=== PATIENT | female | born 1995 | race Caucasian/White ===

== ENCOUNTER 2024-05-29 05:02 | Inpatient (IN) | payer OTHER, SELFPAY ==
[2024-05-29 05:14] VITALS: BP 153/100; BMI 31.6
[2024-05-29 05:46] LABS: % Basophils 0.4 % (0-2); % Eosinophils 0.5 % (0-6); % Immature Granulocytes 0.6 % (0-0.5); % Lymphocytes 25.9 % (20.5-51.1); % Neutrophils 66.6 % (42.2-75.2); Absolute Immature Granulocytes 0.1 10^3/uL (0-0.05); Absolute Lymphocytes 2.1 10^3/uL (1.2-3.4); Absolute Monocytes 0.5 10^3/uL (0.1-0.6); Absolute Neutrophils 5.4 10^3/uL (1.4-6.5); Hematocrit 39.3 % (37.0-47.0); Hemoglobin 13.9 g/dL (12.0-16.0); Mean Corp Hgb Conc. 35.4 g/dL (33.0-37.0); Mean Corpuscular Hgb 31.7 pg (27.0-31.0); Mean Corpuscular Volume 89.5 fL (81.0-99.0); Mean Platelet Volume 11.4 fL (7.4-10.4); Nucleated Red Blood Cells % 0 %; Platelet Count 148 10^3/uL (130-400); Red Blood Cell Count 4.39 10^6/uL (4.20-5.40); Red Cell Dist. Width 12.6 % (11.5-14.5); White Blood Cell Count 8.1 10^3/uL (4.8-10.8)
[2024-05-29 05:57] LABS: Urine Albumin Trace (Neg - Trace); Urine Bilirubin Negative (Negative); Urine Character Clear (Clear); Urine Color Yellow; Urine Glucose Negative (Negative); Urine Ketone Negative (Negative); Urine Leukocyte Negative (Negative); Urine Nitrite Negative (Negative); Urine Occult Blood 2+ (Negative); Urine Specific Gravity 1.015 (<1.030); Urine Urobilinogen Negative (Neg - 1+)
[2024-05-29] MEDS: CELESTONE SOLUSPAN 2 MG IM (06:02)
[2024-05-29] MEDS: LR 1000 IV ×3 (06:03→20:00)
[2024-05-29] MEDS: SYNTHROID 88 MCG PO (06:04)
[2024-05-29] MEDS: VANCOCIN 540 MG IV (06:11)
[2024-05-29 06:13] LABS: ALT (SGPT) 15 U/L (0-35); AST (SGOT) 27 U/L (14-36); Albumin 3.6 g/dl (3.5-5.0); Alkaline Phosphatase 124 U/L (38-126); Blood Urea Nitrogen 8 mg/dl (7-17); Calcium 9.5 mg/dl (8.4-10.2); Carbon Dioxide 21 mmol/L (22-30); Chloride 107 mmol/L (98-107); Estimated Creatinine Clearance > 125 ml/min; Glucose 87 mg/dl (70-99); Potassium 3.7 mmol/L (3.5-5.1); Sodium 140 mmol/L (135-145); Total Bilirubin 0.3 mg/dl (0.2-1.3); Total Protein 6.2 g/dl (6.3-8.2); eGFR > 60.00
[2024-05-29 06:25] LABS: Urine Squamous Cell >30 /LPF (Few)
[2024-05-29 06:26] LABS: Urine Amorphous Seen; Urine Bacteria Moderate (Negative); Urine Urothelial Cell >30 /LPF (FEW)
[2024-05-29 06:28] LABS: Urine Protein 53 mg/dl
[2024-05-29] MEDS: PITOCIN 30 UNITS/NSS 500 ML IV (10:05)
--- NOTE | 2024-05-29 11:13 | PHA.VAN.IN ---
Assessment
- Assessment
Renal Function: Unknown baseline
Concomitant Antimicrobials: none
AUC Dosing Plan
- Empiric Dosing
Initial / Loading Dose: 2000 mg x 1 dose ( adm ~ 0600 05/29/24)
Maintenance Regimen: 1750 mg q8h
Vancomycin 20 mg/kg IV Q8H, dose based on actual weight rounded to nearest 250 mg with max 2,000 mg/dose.
ADMINISTER UNTIL DELIVERY
- Monitoring
No levels ordered at this time: administer until delivery
Pharmacokinetics Vancomycin I
- -
Patient Age: 28
Patient Sex: Female
Vancomycin Day #: 1
Indication: Mary (Ldrp)
Requesting Provider: Ayo
Pertinent Antimicrobial Allergies:
Penicillins, sulfa
Height / Weight:
Height 5 ft 5 in
Actual Weight 86.183 kg
- Vital Signs / Lab Results
Temp Pulse Resp BP
98.3 F 88 18 153/100
05/29/24 05:14 05/29/24 05:14 05/29/24 05:14 05/29/24 05:14
Lab Results - Hematology
05/29/24
05:35
WBC 8.1
Lab Results - Chemistry
05/29/24
05:35
BUN 8
Creatinine 0.6
Estimated Creat Clear > 125
Albumin 3.6
Lab Results - Urine
05/29/24
05:42
Urine Nitrite Negative
Ur Leukocyte Esterase Negative
Urine WBC 6-10 A
Ur Squamous Epith Cells >30
Urine Bacteria Moderate A
[2024-05-29] MEDS: VANCOCIN 535 MG IV ×2 (14:30→22:02)
[2024-05-29] MEDS: SUBLIMAZE 100 MCG EPIDURAL (15:56)
[2024-05-29] MEDS: FENTANYL/BUPIVACAINE 100 EPIDURAL ×2 (15:56→23:20)
[2024-05-30] MEDS: ZOFRAN 4 MG IV (01:16)
[2024-05-30] MEDS: LR 1000 IV (01:23)
[2024-05-30] MEDS: SYNTHROID 88 MCG PO (05:48)
[2024-05-30] MEDS: MOTRIN 600 MG PO ×3 (05:48→20:07)
[2024-05-30] MEDS: TYLENOL 650 MG PO ×2 (14:49→20:07)
[2024-05-30] MEDS: SENOKOT-S 1 TABLET PO (14:49)
[2024-05-31] MEDS: TYLENOL 650 MG PO ×3 (04:06→23:52)
[2024-05-31] MEDS: MOTRIN 600 MG PO ×4 (04:06→23:52)
[2024-05-31 04:57] LABS: Hematocrit 32.6 % (37.0-47.0); Hemoglobin 11.3 g/dL (12.0-16.0)
[2024-05-31] MEDS: SYNTHROID 75 MCG PO (06:39)
[2024-05-31] MEDS: CYTOMEL 5 MICROGRAM PO (06:40)
[2024-05-31] MEDS: SENOKOT-S 1 TABLET PO (15:56)
[2024-05-31 17:35] LABS: % Basophils 0.3 % (0-2); % Eosinophils 0.4 % (0-6); % Immature Granulocytes 0.9 % (0-0.5); % Lymphocytes 24.6 % (20.5-51.1); % Monocytes 5.3 % (1.7-9.3); % Neutrophils 68.5 % (42.2-75.2); Absolute Eosinophils 0.1 10^3/uL (0-0.7); Absolute Immature Granulocytes 0.1 10^3/uL (0-0.05); Absolute Lymphocytes 2.8 10^3/uL (1.2-3.4); Absolute Monocytes 0.6 10^3/uL (0.1-0.6); Absolute Neutrophils 7.9 10^3/uL (1.4-6.5); Hematocrit 31.8 % (37.0-47.0); Hemoglobin 11.1 g/dL (12.0-16.0); Mean Corp Hgb Conc. 34.9 g/dL (33.0-37.0); Mean Corpuscular Hgb 32.2 pg (27.0-31.0); Mean Corpuscular Volume 92.2 fL (81.0-99.0); Mean Platelet Volume 10.6 fL (7.4-10.4); Nucleated Red Blood Cells % 0 %; Platelet Count 150 10^3/uL (130-400); Red Blood Cell Count 3.45 10^6/uL (4.20-5.40); Red Cell Dist. Width 13.2 % (11.5-14.5); White Blood Cell Count 11.5 10^3/uL (4.8-10.8)
[2024-05-31 17:46] LABS: ALT (SGPT) 18 U/L (0-35); AST (SGOT) 45 U/L (14-36); Albumin 3.2 g/dl (3.5-5.0); Alkaline Phosphatase 77 U/L (38-126); Blood Urea Nitrogen 12 mg/dl (7-17); Calcium 9.4 mg/dl (8.4-10.2); Carbon Dioxide 28 mmol/L (22-30); Chloride 106 mmol/L (98-107); Estimated Creatinine Clearance 114 ml/min; Glucose 106 mg/dl (70-99); Sodium 141 mmol/L (135-145); Total Bilirubin 0.2 mg/dl (0.2-1.3); Total Protein 5.4 g/dl (6.3-8.2); Uric Acid 6.4 mg/dl (2.5-6.2); eGFR > 60.00
[2024-05-31 18:05] LABS: Urine Albumin Negative (Neg - Trace); Urine Bilirubin Negative (Negative); Urine Character Slightly Cloudy (Clear); Urine Color Straw; Urine Glucose Negative (Negative); Urine Ketone Negative (Negative); Urine Leukocyte 2+ (Negative); Urine Nitrite Negative (Negative); Urine Occult Blood 3+ (Negative); Urine Urobilinogen Negative (Neg - 1+)
[2024-05-31 19:39] LABS: Urine Bacteria Few (Negative); Urine Red Blood Cell 30-40 /HPF (0-2); Urine White Cell 26-30 /HPF (0-5)
[2024-05-31 19:49] LABS: Protein/creatinine Ratio 0.7; Urine Protein 20 mg/dl
[2024-06-01] MEDS: SYNTHROID 75 MCG PO (05:03)
[2024-06-01] MEDS: SENOKOT-S 1 TABLET PO (05:03)
[2024-06-01] MEDS: CYTOMEL 5 MICROGRAM PO (05:03)
[2024-06-01 05:55] LABS: ALT (SGPT) 18 U/L (0-35); AST (SGOT) 37 U/L (14-36); Albumin 2.8 g/dl (3.5-5.0); Alkaline Phosphatase 74 U/L (38-126); Blood Urea Nitrogen 12 mg/dl (7-17); Calcium 8.8 mg/dl (8.4-10.2); Carbon Dioxide 26 mmol/L (22-30); Chloride 107 mmol/L (98-107); Estimated Creatinine Clearance > 125 ml/min; Glucose 72 mg/dl (70-99); Potassium 4.1 mmol/L (3.5-5.1); Sodium 141 mmol/L (135-145); Total Bilirubin 0.2 mg/dl (0.2-1.3); eGFR > 60.00
[2024-06-01] MEDS: TYLENOL 650 MG PO (06:44)
[2024-06-01] MEDS: MOTRIN 600 MG PO (06:44)
[2024-06-01 15:43] LABS: Syphilis/T. pallidum Ab Reflex Negative (Negative)
== END 2024-06-01 13:08 | disposition home or self-care (01) | DRG 807 ==
LOC: LDRP 05:02
PROVIDERS: Obstetrics & Gynecology; ADMITTING PHYSICIAN Obstetrics & Gynecology; FAMILY PHYSICIAN Nurse Practitioner Adult Health
PROC: 0UQMXZZ Repair Vulva, External Approach (ICD-10-PCS; 2024-05-30)
PROC: 10E0XZZ Delivery of Products of Conception, External Approach (ICD-10-PCS; 2024-05-30)
PROC: 0HQ9XZZ Repair Perineum Skin, External Approach (ICD-10-PCS; 2024-05-30)
DX: O60.14X0 Preterm labor third trimester with preterm delivery third trimester, not applicable or unspecified (principal); Z37.0 Single live birth; Z3A.35 35 weeks gestation of pregnancy; O42.013 Preterm premature rupture of membranes, onset of labor within 24 hours of rupture, third trimester; O70.0 First degree perineal laceration during delivery; O90.89 Other complications of the puerperium, not elsewhere classified; R03.0 Elevated blood-pressure reading, without diagnosis of hypertension; R51.9 Headache, unspecified; R00.2 Palpitations; O69.81X0 Labor and delivery complicated by cord around neck, without compression, not applicable or unspecified; O69.82X0 Labor and delivery complicated by other cord entanglement, without compression, not applicable or unspecified; O99.284 Endocrine, nutritional and metabolic diseases complicating childbirth; E03.9 Hypothyroidism, unspecified; Z88.0 Allergy status to penicillin; Z88.2 Allergy status to sulfonamides
CPT/HCPCS: 88307; 80053; 81003; 81015; 82570; 84156; 84550; 85014; 85018; 85025; 86780; 86850; 86900; 86901; 87070; 93005

== ENCOUNTER 2024-07-08 14:35 | Emergency (ER) | payer OTHER, SELFPAY ==
[2024-07-08 14:39] VITALS: BP 123/80
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
[2024-07-08 17:01] VITALS: BP 112/71
== END 2024-07-08 17:06 | disposition home or self-care (01) ==
LOC: EMR 14:35
PROVIDERS: EMERGENCY PHYSICIAN Emergency Medicine; FAMILY PHYSICIAN Nurse Practitioner Adult Health
DX: S00.81XA Abrasion of other part of head, initial encounter (principal); R52 Pain, unspecified; V89.2XXA Person injured in unspecified motor-vehicle accident, traffic, initial encounter; E03.9 Hypothyroidism, unspecified
CPT/HCPCS: 99282